=== PATIENT | male | born 1980 | race Two or more races ===

== ENCOUNTER 2018-08-09 23:52 | Emergency (ER) | payer SELFPAY ==
[~2018-08-09] VITALS: Ht 167.6 cm; Wt 95.0 kg
--- NOTE | 2018-08-10 00:12 | NUR ---
PT PLACED ON MONITOR. COMPLAINTS OF CHEST PAIN RELATED TO ANXIETY. MIDSTERNAL PAIN WITH NO RADIATION THAT STARTED THIS MORNING.
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
[2018-08-10] MEDS ORDERED: ACETAMINOPHEN 500 MG TABLET ONE (00:21)
[2018-08-10] MEDS ORDERED: hydrOXyzine 50MG TABLET ONE (00:21)
[2018-08-10 00:28] LABS: BASOPHILS # (AUTO) 0.03 x10^3/uL (0-0.1); BASOPHILS % (AUTO) 0 % (0-1); EOSINOPHILS # (AUTO) 0.01 x10^3/uL (0-0.4); EOSINOPHILS % (AUTO) 0 % (1-7); LYMPHOCYTES # (AUTO) 3.16 x10^3/uL (1-3.4); LYMPHOCYTES % (AUTO) 22 % (22-44); MD NO; MEAN CORPUSCULAR HEMOGLOBIN 29.9 pg (27.5-34.5); MEAN CORPUSCULAR HGB CONC 34.3 g/dL (33.2-36.2); MEAN CORPUSCULAR VOLUME 87.2 fL (81-97); MEAN PLATELET VOLUME 9.3 fL (7.4-10.4); MONOCYTES # (AUTO) 1.35 x10^3/uL (0.2-0.8); MONOCYTES % (AUTO) 9 % (2-9); NEUTROPHILS % (AUTO) 69 % (42-75); PLATELET COUNT 322 x10^3/uL (130-400); RED BLOOD COUNT 5.93 x10^6/uL (4.38-5.82); RED CELL DISTRIBUTION WIDTH 13.5 % (9.4-14.8)
[2018-08-10] MEDS ORDERED: ACETAMINOPHEN 500 MG TABLET PO ONE (00:30)
[2018-08-10 00:41] LABS: ANION GAP 11 mmol/L (5-15); CALCIUM 8.7 mg/dL (8.5-10.1); CHLORIDE 103 mmol/L (98-107); CREATININE 1.41 mg/dL (0.7-1.3)
[2018-08-10 00:42] LABS: D-DIMER 0.21 ug/mlFEU (0.00-0.52); INTERNATIONAL NORMALIZED RATIO 1.01 (0.93-1.1); PROTHROMBIN TIME 10.6 Seconds (9.6-11.5)
[2018-08-10 00:44] LABS: TROPONIN I < 0.015 ng/mL (0.000-0.045)
--- NOTE | 2018-08-10 01:06 | NUR ---
PT RESTING. VSS. UPDATED ON POC. STILL HAVE COMPLAINTS OF ANXIETY.
[2018-08-10 01:32] VITALS: BP 136/79
== END 2018-08-10 01:46 | disposition home or self-care (01) ==
LOC: EDBD → ED 08-10 01:36
DX: R07.89 Other chest pain (principal); F15.10 Other stimulant abuse, uncomplicated; E86.0 Dehydration; N17.9 Acute kidney failure, unspecified; J45.909 Unspecified asthma, uncomplicated
CPT/HCPCS: 36415; 71045; 80048; 84484; 85025; 85379; 85610; 85730; 93005; 99284; Q0177

== ENCOUNTER 2018-08-10 02:46 | Emergency (ER) | payer MEDICAID ==
[~2018-08-10] VITALS: Ht 167.6 cm; Wt 95.3 kg
[2018-08-10 02:54] VITALS: BP 156/87
--- NOTE | 2018-08-10 03:01 | NUR ---
PT REFUSING TO LEAVE TRIAGE AND GO BACK TO LOBBY. SECURITY CALLED TO [facility] ROOM TO SPEAK WITH PT. PT CONTINUES TO ARGUE WITH SECURITY. STATES "I DON'T HAVE ANYWHERE TO GO MAN, I CAN'T GO SIT OUT THERE"
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
== END 2018-08-10 03:43 | disposition home or self-care (01) ==
LOC: EDBD 02:46 → ED 03:37
DX: R45.851 Suicidal ideations (principal); Z53.21 Procedure and treatment not carried out due to patient leaving prior to being seen by health care provider